=== PATIENT | female | born 1955 | race Caucasian/White ===

== ENCOUNTER 2017-04-11 09:55 | Emergency (ER) | payer OTHER ==
[2017-04-11] MEDS ORDERED: Proparacaine 0.5% Ophth Soln 15 ML Bottle EYEBOTH STA (10:11)
--- NOTE | 2017-04-11 10:33 | EDM.PDOC ---
ED HPI GENERAL MEDICAL PROBLEM - General Chief Complaint: Eye Problems Stated Complaint: BLURRY VISION Time Seen by Provider: 04/11/17 10:02 Source of Information: Reports: Patient History Limitations: Reports: No Limitations - History of Present Illness INITIAL COMMENTS - FREE TEXT/NARRATIVE: HISTORY AND PHYSICAL: History of present illness: Patient is a 61-year-old female who presents to the emergency room today with complaints of double vision since this morning. She reports that she saw Dr. Lopez 3 days ago and was prescribed Ceftin for a localized infection of the left ankle. She states that this infection has been going on for a month, circular area approximately the size of a dime. Dr. Lopez cultured the area and told the patient that it was infected with Escherichia coli and proceeded to have her take prescribed Ceftin as a form of treatment. Patient states she took her first dose last night. She took her second dose this morning and as she was watching the television she noticed her vision becoming double. Her states that he looked at her eyes and the right eye was not communicating with the left. The left eye was able to track and follow what she was looking at where as the right eye was sluggish and "rolled in the back of her head". Patient denies any eye pain, headache, nausea, vomiting. She denies any recent trauma or injury to her head, face or eyes. Patient has a past medical history of atrial fibrillation which she takes medications for, but has not had any problems with this in "a long time". Patient does wear glasses- visual acuity was done with her bifocal glasses. OD 20/70 OS 20/30 Review of systems: As per history of present illness and below otherwise all systems reviewed and negative. Past medical history: As per history of present illness and as reviewed below otherwise noncontributory. Surgical history: As per history of present illness and as reviewed below otherwise noncontributory. Social history: No reported history of drug or alcohol abuse. Family history: As per history of present illness and as reviewed below otherwise noncontributory. Physical exam: Gen.: Well-developed and well-nourished 61-year-old female. Alert and oriented. Able to speak in full sentences without shortness of breath HEENT: Atraumatic, normocephalic, pupils reactive bilaterally with the right pupil slightly more sluggish. Patient is able to track my finger when assessing cardinal cornejo although the right eye drags behind but is able to catch up with the left. No foreign body or corneal abrasion noted. Patient reports that when she covers one eye that the double vision subsides. Negative for conjunctival pallor or scleral icterus. Mucous membranes moist, throat clear, neck supple, nontender, trachea midline. Lungs: Clear to auscultation, breath sounds equal bilaterally, chest nontender. Heart: S1S2, regular, negative for clicks, rubs, or JVD. Abdomen: Soft, nondistended, nontender. Negative for masses or hepatosplenomegaly. Negative for costovertebral tenderness. Pelvis: Stable nontender. Genitourinary: Deferred. Rectal: Deferred. Extremities: Atraumatic, negative for cords or calf pain. Neurovascular unremarkable. Neuro: Awake, alert, oriented. Cranial nerves II through XII unremarkable. Cerebellum unremarkable. Motor and sensory unremarkable throughout. Exam nonfocal. Patient was concerned that her symptoms were related to the Ceftin medication. Did consult with Dr. Lopez about the medication he had placed her on. He agrees that she can stay on the Ceftin. As this visual change is the only symptom, I do not feel that this is related. I will touch base with her after her ophthalmology appointment, as well I to see what came about from her appointment. At that time I will discuss whether or not she would like the antibiotic changed and make sure she does create a follow-up appointment with Dr. Lopez. I will have her continue Tonopen was used proparacaine for comfort. Both eyes tested at 15mm HG. Pt tolerated well. Testing results were reviewed with the patient. Labs and head CT were normal. At this time I do not find anything acquiring immediate intervention on the half of the emergency room. I did talk with Dr. Glass, the bosom presser precision lens technician, he said he will see her right away. Patient will be discharged to go directly to [facility] for further evaluation. Her is driving her. Patient is agreeable to plan of care and denies any further questions at this time. Diagnostics: CBC, CMP,PT/INR, head CT Therapeutics: Proparicaine Impression: Visual Disturbance Plan: 1. Please go directly to [facility] across the [place] to see Dr. Glass, the bosom presser for further ocular examination. 2. Turn to the ED as needed as discussed Definitive disposition and diagnosis as appropriate pending reevaluation and review of above. Onset: Today Duration: Hour(s): Location: Reports: Other (Eyes, mainly right) - Related Data Allergies Allergy/AdvReac Type Severity Reaction Status Date / Time No Known Allergies Allergy Verified 04/11/17 10:01 Home Meds: Home Meds Cefuroxime [Ceftin] 500 mg PO BID 04/11/17 [History] Flecainide Acetate 100 mg PO BID 04/11/17 [History] Lisinopril 2.5 mg PO DAILY 04/11/17 [History] Metoprolol Tartrate 25 mg PO BID 04/11/17 [History] Past Medical History - Past Health History Medical/Surgical History: Denies Medical/Surgical History HEENT History: Reports: Impaired Vision Other HEENT History: wears glasses Cardiovascular History: Reports: Afib Social & Family History - Family History Family Medical History: Noncontributory - Tobacco Use Smoking Status *Q: Current Every Day Smoker Years of Tobacco use: 40 Packs/Tins Daily: 1 - Recreational Drug Use Recreational Drug Use: No ED ROS GENERAL - Review of Systems Review Of Systems: ROS reveals no pertinent complaints other than HPI. ED EXAM GENERAL W FULL EYE - Physical Exam Exam: See Below (See dictation) Course - Vital Signs Last Recorded V/S: Last Vital Signs Temp 36.5 C 04/11/17 09:55 Pulse 70 04/11/17 09:55 Resp 18 04/11/17 09:55 BP 139/65 04/11/17 09:55 Pulse Ox 95 04/11/17 09:55 - Orders/Labs/Meds Labs: Laboratory Tests 04/11/17 04/11/17 04/11/17 Range/Units 10:43 10:43 10:43 WBC 5.48 (4.0-11.0) K/uL RBC 4.83 (4.30-5.90) M/uL Hgb 15.6 (12.0-16.0) g/dL Hct 44.6 (36.0-46.0) % MCV 92.3 (80.0-98.0) fL MCH 32.3 H (27.0-32.0) pg MCHC 35.0 (31.0-37.0) g/dL RDW Std Deviation 44.8 (28.0-62.0) fl RDW Coeff of Noe 13 (11.0-15.0) % Plt Count 250 (150-400) K/uL MPV 10.70 (7.40-12.00) fL Neut % (Auto) 54.9 (48.0-80.0) % Lymph % (Auto) 33.2 (16.0-40.0) % [place] % (Auto) 8.0 (0.0-15.0) % Eos % (Auto) 2.6 (0.0-7.0) % Baso % (Auto) 1.3 (0.0-1.5) % Neut # (Auto) 3.0 (1.4-5.7) K/uL Lymph # (Auto) 1.8 (0.6-2.4) K/uL [place] # (Auto) 0.4 (0.0-0.8) K/uL Eos # (Auto) 0.1 (0.0-0.7) K/uL Baso # (Auto) 0.1 (0.0-0.1) K/uL Nucleated RBC % 0.0 /100WBC Nucleated RBCs # 0 K/uL INR 1.04 (0.86-1.11) Sodium 139 (136-146) mmol/L Potassium 4.0 (3.5-5.1) mmol/L Chloride 111 H (98-110) mmol/L Carbon Dioxide 20 L (21-31) mmol/L BUN 17 (6.0-23.0) mg/dL Creatinine 0.8 (0.6-1.5) mg/dL Est Cr Clr Drug Dosing TNP Estimated GFR (MDRD) > 60.0 ml/min Glucose 105 (60-110) mg/dL Calcium 10.0 (8.8-10.8) mg/dL Total Bilirubin 0.5 (0.1-1.5) mg/dL AST 19 (5-40) IU/L ALT 29 (8-54) IU/L Alkaline Phosphatase 65 (40-150) Total Protein 6.7 (6.0-8.0) g/dL Albumin 3.8 (3.4-4.8) g/dL Globulin 2.9 (2.0-3.5) g/dL Albumin/Globulin Ratio 1.3 (1.3-2.8) Meds: Medications Discontinued Medications Generic Name Dose Route Start Last Admin Trade Name Abhishek PRN Reason Stop Dose Admin Proparacaine HCl 2 ml 04/11/17 10:11 Proparacaine 0.5% Ophth Soln EYEBOTH 04/11/17 10:12 NOW STA Departure - Departure Time of Disposition: 12:00 Disposition: Home, Self-Care 01 Clinical Impression: Visual disturbance - Discharge Information Instructions: Visual Disturbances Referrals: Sathish Lopez MD [Primary Care Provider] - Forms: ED Department Discharge Additional Instructions: My general discharge The following information is given to patients seen in the emergency department who are being discharged to home. This information is to outline your options for follow-up care. We provide all patients seen in our emergency department with a follow-up referral. The need for follow-up, as well as the timing and circumstances, are variable depending upon the specifics of your emergency department visit. If you don't have a primary care physician on staff, we will provide you with a referral. We always advise you to contact your personal physician following an emergency department visit to inform them of the circumstance of the visit and for follow-up with them and/or the need for any referrals to a consulting specialist. The emergency department will also refer you to a specialist when appropriate. This referral assures that you have the opportunity for follow-up care with a specialist. All of these measure are taken in an effort to provide you with optimal care, which includes your follow-up. Under all circumstances we always encourage you to contact your private physician who remains a resource for coordinating your care. When calling for follow-up care, please make the office aware that this follow-up is from your recent emergency room visit. If for any reason you are refused follow-up, please contact the [facility] Emergency Department at and asked to speak to the emergency department charge nurse. [address] [id number] 1. Please go directly to [facility] across the bypass to see Dr. Glass, the bosom presser for further ocular examination. 2. Turn to the ED as needed as discussed
--- NOTE | 2017-04-11 11:15 | CT ---
EXAMINATION: Non contrast CT head. Coronal and sagittal reformats. HISTORY: Pain FINDINGS: No evidence of intra or extra axial hemorrhage, mass, midline shift, hydrocephalus or edema. No hypoattenuation changes in the major vascular territories to suggest acute infarct. No abnormal intracranial calcifications are detected. No evidence of substantial vascular calcificat ions. Paranasal sinuses and mastoid air cells are well aerated without substantial findings. The orbits an d globes are symmetric. Pituitary fossa appears unremarkable. Calvarium is intact. No evidence of skull fracture. IMPRESSION: No acute intracranial findings.
[2017-04-11 11:19] LABS: CHLORIDE,CL 111 mmol/L (98-110); SODIUM,NA 139 mmol/L (136-146)
== END 2017-04-11 11:52 | disposition home or self-care (01) ==
LOC: MW.ED 09:55
DX: H53.9 Unspecified visual disturbance (principal); F17.210 Nicotine dependence, cigarettes, uncomplicated; Z79.899 Other long term (current) drug therapy
CPT/HCPCS: 36415; 70450; 70450-26; 80053; 85025; 85610; 99283; 99284-25